=== PATIENT | male | born 1980 | race American Indian/Alaskan Native ===

== ENCOUNTER 2017-09-03 07:11 | Emergency (ER) | payer SELFPAY ==
[2017-09-03] MEDS ORDERED: CATAPRES PO ONE (08:38)
[2017-09-03] MEDS ORDERED: TORADOL IM ONE (09:24)
--- NOTE | 2017-09-03 09:49 | Emergency Department Report ---
ED Lower Extremity HPI - General Chief Complaint: Extremity Injury, Lower Stated Complaint: KNEE OUT OF SOCKET Time Seen by Provider: 09/03/17 08:55 Source: patient Mode of arrival: Ambulatory Limitations: No Limitations - History of Present Illness Initial Comments: This is a 37-year-old male nontoxic, well nourished in appearance, no acute signs of distress presents to the ED with c/o of left knee pain and swelling x2 days. Patient stated he was playing football yesterday and heard a pop and instantly developed pain and swelling to the region. Patient stated he went to [facility] yesterday and was diagnosed with dislocated left knee and patella tendon rupture and he is scheduled for surgery for next week. Patient never received any pain medication and now developed pain. Patient is in the ED requesting for pain medication. Patient stated he has been discharged with a knee immobilizer. Patient denies any new trauma to the region. Patient denies any numbness, tingling, fever, chills, nausea, vomiting, headache or stiff neck. Patient denies any chest pain or shortness of breath. Patient denies any drug allergies. Past medical history includes hypertension as he stated he takes lisinopril but does not remember the dose. Patient state he missed his dose today due to the pain. MD Complaint: knee injury -: days(s) (2) Injury: Knee: Left Type of Injury: blunt Place: home Severity: mild Severity scale (0 -10): 8 Improves With: nothing Worsens With: nothing Context: running Associated Symptoms: snap/pop sensation, swelling, able to partially bear weight , ambulatory. denies: numbness, tingling, unable to bear weight - Related Data Previous Rx's Medication Instructions Recorded Last Taken Type amLODIPine [Norvasc] 5 mg PO DAILY #30 tab 05/04/15 Unknown Rx Ibuprofen [Motrin] 600 mg PO Q8H PRN #30 tablet 09/03/17 Unknown Rx traMADol [Ultram] 50 mg PO Q6HR PRN #12 tablet 09/03/17 Unknown Rx Allergies Allergy/AdvReac Type Severity Reaction Status Date / Time shellfish derived Allergy Itching Verified 05/04/15 10:06 ED Review of Systems ROS: Stated complaint: KNEE OUT OF SOCKET Other details as noted in HPI Constitutional: denies: chills, fever Eyes: denies: eye pain, eye discharge, vision change ENT: denies: ear pain, throat pain Respiratory: denies: cough, shortness of breath, wheezing Cardiovascular: denies: chest pain, palpitations Endocrine: no symptoms reported Gastrointestinal: denies: abdominal pain, nausea, diarrhea Genitourinary: denies: urgency, dysuria Musculoskeletal: denies: back pain, joint swelling, arthralgia Skin: denies: rash, lesions Neurological: denies: headache, weakness, paresthesias Psychiatric: denies: anxiety, depression Hematological/Lymphatic: denies: easy bleeding, easy bruising ED Past Medical Hx - Past Medical History Previous Medical History?: Yes Hx Hypertension: Yes Additional medical history: DIVERTICULOSIS - Surgical History Past Surgical History?: Yes Hx Appendectomy: Yes Additional Surgical History: HERNIA REPAIR - Social History Smoking Status: Current Every Day Smoker Substance Use Type: Alcohol - Medications Home Medications: Home Medications Medication Instructions Recorded Confirmed Last Taken Type amLODIPine [Norvasc] 5 mg PO DAILY #30 tab 05/04/15 Unknown Rx Ibuprofen [Motrin] 600 mg PO Q8H PRN #30 tablet 09/03/17 Unknown Rx traMADol [Ultram] 50 mg PO Q6HR PRN #12 tablet 09/03/17 Unknown Rx ED Physical Exam - General Limitations: No Limitations General appearance: alert, in no apparent distress - Head Head exam: Present: atraumatic, normocephalic - Eye Eye exam: Present: normal appearance - ENT ENT exam: Present: mucous membranes moist - Neck Neck exam: Present: normal inspection - Respiratory Respiratory exam: Present: normal lung sounds bilaterally. Absent: respiratory distress - Cardiovascular Cardiovascular Exam: Present: regular rate, normal rhythm. Absent: systolic murmur, diastolic murmur, rubs, gallop - GI/Abdominal GI/Abdominal exam: Present: soft, normal bowel sounds - Rectal Rectal exam: Present: deferred - Extremities Exam Extremities exam: Present: normal inspection, full ROM, tenderness, normal capillary refill. Absent: pedal edema, joint swelling, calf tenderness - Expanded Lower Extremity Exam Left Hip exam: Present: normal inspection, full ROM Upper Leg exam: Present: normal inspection, full ROM Knee exam: Present: normal inspection, tenderness, swelling, effusion, full knee extension. Absent: full ROM, abrasion, laceration, ecchymosis, deformity, crepidus, dislocation, erythema, pain w/ pronation/supination, posterior draw sign, pain/laxity with valgus, pain/laxity with varus Lower Leg exam: Present: normal inspection, full ROM Ankle exam: Present: normal inspection, full ROM Foot/Toe exam: Present: normal inspection, full ROM Neuro vascular tendon exam: Present: no vascular compromise. Absent: pulse deficit, abnormal cap refill, motor deficit, sensory deficit, tendon deficit, extremity cold to touch, pallor, abnormal 2-point discrimination, decreased fine /light touch, foot drop, peroneal nerve deficit, significant pain with passive ROM of distal joint Gait: Positive: observed and limited by pain - Back Exam Back exam: Present: normal inspection, full ROM. Absent: tenderness, CVA tenderness (R), CVA tenderness (L), muscle spasm, paraspinal tenderness, vertebral tenderness, rash noted - Neurological Exam Neurological exam: Present: alert, oriented X3, CN II-XII intact, normal gait, reflexes normal - Psychiatric Psychiatric exam: Present: normal affect, normal mood - Skin Skin exam: Present: warm, dry, intact, normal color. Absent: rash ED Course Vital Signs 09/03/17 09/03/17 08:24 08:53 Temperature 98.4 F Pulse Rate 99 H 99 H Respiratory 18 Rate Blood Pressure 175/118 175/118 O2 Sat by Pulse 97 Oximetry - Reevaluation(s) Reevaluation #1: 09/03/17 09:53 Patient is speaking in full sentences with no signs of distress noted. ED Lower Extremity MDM - Medical Decision Making This is a 37-year-old male that presents with left knee pain. Patient is stable and was examined by me. Patient stated was seen in the ED in [place] last night and was diagnosed with patella tendon repair and has a scheduled surgery. I repeated x-ray of the knee and dictated by radiologist with impression of joint effusion possible patellar tendon rupture. Patient does have a knee immobilizer so I struck the patient to continue wearing knee immobilizer. Patient stated he just came in for pain medications as he did not get any after discharge. [facility] indicates patient has no history of narcotic prescription. I will discharge patient with Ultram and Motrin. I instructed patient not to operate any machinery while taking Ultram due to drowsiness. I referred patient to orthopedic doctor to follow in 24 hours. At time time of discharge, the patient does not seem toxic or ill in appearance. No acute signs of distress noted. Patient agrees to discharge treatment plan of care. No further questions noted by the patient. Patient was also instructed to RICE therapy. Patient received Catapres 0.2 mg in the ED decreased blood pressure. Blood pressure decreased prior to discharge. I instructed patient to keep a daily diary of blood pressure and continue taking medications as prescribed by his primary care. Critical care attestation.: If time is entered above; I have spent that time in minutes in the direct care of this critically ill patient, excluding procedure time. ED Disposition Clinical Impression: Effusion, left knee Patellar tendon rupture Qualifiers: Encounter type: initial encounter Laterality: left Qualified Code(s): S86.812A - Strain of other muscle(s) and tendon(s) at lower leg level, left leg, initial encounter Hypertension Qualifiers: Hypertension type: unspecified Qualified Code(s): I10 - Essential (primary) hypertension Disposition: TO HOME OR SELFCARE Is pt being admited?: No Does the pt Need Aspirin: No Condition: Stable Instructions: Knee Effusion (ED), Ibuprofen (By mouth), RICE Therapy (ED), Tramadol (By mouth), Hypertension (ED) Additional Instructions: Follow-up with a orthopedic doctor in 24 hours or if symptoms worsen and continue return to emergency room as soon as possible. Rest, elevate, ice extremity. Do not operate any machinery while taking DUE TO DROWSINESS. Continue takine blood pressure medication as prescribed by your primary care doctor and keep a daily dairy of your blood pressure. Prescriptions: Ibuprofen [Motrin] 600 mg PO Q8H PRN #30 tablet PRN Reason: Pain traMADol [Ultram] 50 mg PO Q6HR PRN #12 tablet PRN Reason: Pain Referrals: PRIMARY CAREMD [Primary Care Provider] - 3-5 Days NKECHI ELLISON MD [Staff Physician] - 3-5 Days [facility] [Outside] - 3-5 Days [facility] [Outside] - 3-5 Days Forms: Work/School Release Form(ED)
--- NOTE | 2017-09-03 10:09 | XRay Report ---
LEFT KNEE, 3 views: History: Pain There is moderate to severe anterior soft tissue swelling. The patella appears to be slightly high riding. Is there concern for patellar tendon rupture? There is normal bone mineralization. No evidence for fracture, bone lesion or joint pathology. Moderate joint effusion is noted. IMPRESSION: Anterior soft tissue swelling. Joint effusion. Patella shy? Correlate for patellar tendon rupture. No acute bony findings.
[2017-09-03 10:48] VITALS: BP 143/86
== END 2017-09-03 11:02 | disposition home or self-care (01) ==
LOC: ED 07:11
DX: S86.812A Strain of other muscle(s) and tendon(s) at lower leg level, left leg, initial encounter (principal); M25.462 Effusion, left knee; I10 Essential (primary) hypertension; Z90.49 Acquired absence of other specified parts of digestive tract; F17.200 Nicotine dependence, unspecified, uncomplicated; W21.01XA Struck by football, initial encounter; Y93.61 Activity, american tackle football; Y92.39 Other specified sports and athletic area as the place of occurrence of the external cause; Y99.8 Other external cause status
CPT/HCPCS: 29505; 73562; 96372; 99283; J1885